=== PATIENT | male | born 1995 | race African-American/Black ===

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

== ENCOUNTER 2017-01-06 15:56 | Emergency (ER) | payer SELFPAY ==
[2017-01-06] MEDS ORDERED: PREDNISONE 20 MG TABLET PO ONE (16:28)
[2017-01-06] MEDS ORDERED: IPRATROPIUM/ALBUTEROL 0.5-2.5 MG/3 ML AMPUL NEB ONE (16:28)
--- NOTE | 2017-01-06 16:32 | ER Document Report ---
HPI - HPI Patient complains to provider of: Cough and chest congestion, asthma flare Onset: Other Onset/Duration: Sudden Quality of pain: Achy Severity: Severe Pain Level: 5 Context: Patient states he has had cold symptoms that started last Thursday. No fever. Nebulizer not helping with cough and asthma. Patient also needs albuterol solution refills. Patient complains of intermittent back pain on and off for the last 1-2 months. This is not related to current illness. Associated Symptoms: Nonproductive cough, Sinus pain/drainage. denies: Fever Exacerbated by: Denies Relieved by: Denies Similar symptoms previously: Yes Recently seen / treated by doctor: No - ROS ROS below otherwise negative: Yes Systems Reviewed and Negative: Yes All other systems reviewed and negative - CONSTITUTIONAL Constitutional: DENIES: Fever - EENT EENT: REPORTS: Sore Throat, Ear Pain, Nasal Drainage-Clear, Congestion - NEURO Neurology: REPORTS: Headache - CARDIOVASCULAR Cardiovascular: DENIES: Chest pain - RESPIRATORY Respiratory: REPORTS: Trouble Breathing, Coughing - GASTROINTESTINAL Gastrointestinal: DENIES: Abdominal Pain - URINARY Urinary: DENIES: Dysuria - MUSCULOSKELETAL Musculoskeletal: REPORTS: Back Pain - DERM Skin Color: Normal Skin Problems: None Past Medical History - General Information source: Patient - Social History Smoking Status: Current Every Day Smoker Cigarette use (# per day): Yes Frequency of alcohol use: None Drug Abuse: None Lives with: Family Family History: Reviewed & Not Pertinent Patient has suicidal ideation: No Patient has homicidal ideation: No Pulmonary Medical History: Reports: Hx Asthma Surgical Hx: Negative - Immunizations Immunizations up to date: Yes Hx Diphtheria, Pertussis, Tetanus Vaccination: Yes Vertical Provider Document - CONSTITUTIONAL Agree With Documented VS: Yes Exam Limitations: No Limitations General Appearance: WD/WN, No Apparent Distress - INFECTION CONTROL TRAVEL OUTSIDE OF THE [place] IN LAST 30 DAYS: No - HEENT HEENT: Atraumatic, Normocephalic Notes: TMs dull bilaterally on exam. Throat with mild erythema, patient does have postnasal drainage. - NECK Neck: Normal Inspection, Supple - RESPIRATORY Respiratory: No Respiratory Distress, Wheezing O2 Sat by Pulse Oximetry: 97 - CARDIOVASCULAR Cardiovascular: Regular Rate, Regular Rhythm - GI/ABDOMEN Gastrointestinal: Abdomen Soft, Abdomen Non-Tender, Normal Bowel Sounds - MUSCULOSKELETAL/EXTREMETIES Musculoskeletal/Extremeties: MAEW - NEURO Level of Consciousness: Awake, Alert, Appropriate - DERM Integumentary: Warm, Dry, No Rash Course - Re-evaluation Re-evalutation: 01/06/17 17:26 Chest x-ray was normal and this was discussed with patient. Minimal expiratory wheeze noted after neb treatment. 01/06/17 18:36 After second neb treatment, no wheezing noted. - Vital Signs Vital signs: Temp Pulse Resp BP Pulse Ox 98.8 F 76 22 127/82 H 97 01/06/17 16:12 01/06/17 16:12 01/06/17 16:12 01/06/17 16:12 01/06/17 16:12 Discharge - Discharge Clinical Impression: URI, acute, Asthma exacerbation Condition: Good Disposition: HOME, SELF-CARE Additional Instructions: Take all meds as prescribed Nebs every 4 hours 2 days, then every 4 hours as needed for cough and/or wheezing Push fluids [id number] cough cold medication for symptom relief Tylenol or Motrin as needed Follow-up with your primary care provider Thursday for recheck Return if worsens and as needed Prescriptions: Albuterol Sulfate [Proair HFA] 1 - 2 puff IH Q4 PRN #1 inhaler PRN Reason: Albuterol Sulfate [Ventolin 0.083% Neb 2.5 mg/3 mL Ampul] 1 vial NEB Q4 #30 vial Azithromycin [Zithromax 250 mg Tablet] 250 mg PO ASDIR PRN #6 tablet PRN Reason: Prednisone [Deltasone 10 mg Tablet] 10 mg PO ASDIR PRN #15 tablet PRN Reason: Forms: Return to School, Release from PE and Sports
--- NOTE | 2017-01-06 16:45 | RADIOLOGY REPORT (SQ) ---
EXAM DESCRIPTION: CHEST PA/LAT COMPLETED DATE/TIME: 01/06/2017 4:38 pm REASON FOR STUDY: cough COMPARISON: 08/15/2014. EXAM PARAMETERS: NUMBER OF VIEWS: two views TECHNIQUE: Digital Frontal and Lateral radiographic views of the chest acquired. RADIATION DOSE: NA LIMITATIONS: none FINDINGS: LUNGS AND PLEURA: No opacities, masses or pneumothorax. No pleural effusion. MEDIASTINUM AND HILAR STRUCTURES: No masses or contour abnormalities. HEART AND VASCULAR STRUCTURES: Heart normal size. No evidence for failure. BONES: No acute findings. HARDWARE: None in the chest. OTHER: No other significant finding. IMPRESSION: NO SIGNIFICANT RADIOGRAPHIC FINDING IN THE CHEST. TECHNICAL DOCUMENTATION: JOB ID: [id number] [employer]- All Rights Reserved
[2017-01-06] MEDS ORDERED: ALBUTEROL SULFATE 0.083% NEB 2.5 MG/3 ML AMPUL NEB ONE (17:23)
[2017-01-06 17:49] LABS: APPEARANCE,URINE CLEAR; BILIRUBIN,URINE NEGATIVE (NEGATIVE); GLUCOSE, URINE NEGATIVE (NEGATIVE); KETONES,URINE NEGATIVE (NEGATIVE); LEUKOCYTE ESTERASE,URINE NEGATIVE (NEGATIVE); NITRITE,URINE NEGATIVE (NEGATIVE); PROTEIN,URINE NEGATIVE (NEGATIVE); URINE SPECIFIC GRAVITY 1.017; UROBILINOGEN,URINE NEGATIVE mg/dL (<2.0)
[2017-01-06 19:31] VITALS: BP 142/75
== END 2017-01-06 19:31 | disposition home or self-care (01) ==
LOC: ER 15:56
DX: J06.9 Acute upper respiratory infection, unspecified (principal); J45.901 Unspecified asthma with (acute) exacerbation; F17.210 Nicotine dependence, cigarettes, uncomplicated
CPT/HCPCS: 94640 ×2; 99284; 81001; 71020; J7512; J7620

== ENCOUNTER 2017-04-16 03:27 | Emergency (ER) | payer SELFPAY ==
[2017-04-16] MEDS ORDERED: NORMAL SALINE 1000 ML 1,000 ML IV ONE (03:37)
[2017-04-16] MEDS ORDERED: DIPHENHYDRAMINE HCL 50 MG/ML VIAL IV ONE (03:38)
--- NOTE | 2017-04-16 03:42 | ER Document Report ---
ED GI/ - General Chief Complaint: Nausea/Vomiting/Diarrhea Stated Complaint: FLU LIKE SYMPTOMS Time Seen by Provider: 04/16/17 03:32 Notes: Patient is a 21-year-old male that comes emergency department by EMS for chief complaint of nausea, vomiting, and diarrhea. He states symptoms started almost 24 hours ago, he has vomited about 10 times, had similar amount of diarrhea, states two times he had a few bright red bloody spots in the diarrhea (although none on the previous episode). He denies fever, he reports some chills. He reports generalized abdominal discomfort. No obvious sick contacts. He states he started to feel bad about 2 hours after [employer]. He denies recent travel, recent antibiotics. He denies any daily medications or surgeries. TRAVEL OUTSIDE OF THE [place] IN LAST 30 DAYS: No - Related Data Allergies/Adverse Reactions: No Known Allergies Allergy (Verified 01/06/17 16:12) Past Medical History - General Information source: Patient - Social History Smoking Status: Current Every Day Smoker Chew tobacco use (# tins/day): No Frequency of alcohol use: Social Drug Abuse: None Lives with: Family Family History: Reviewed & Not Pertinent Patient has suicidal ideation: No Patient has homicidal ideation: No Pulmonary Medical History: Reports: Hx Asthma Renal/ Medical History: Denies: Hx Peritoneal Dialysis Surgical Hx: Negative - Immunizations Immunizations up to date: Yes Hx Diphtheria, Pertussis, Tetanus Vaccination: Yes Review of Systems - Review of Systems Constitutional: No symptoms reported EENT: No symptoms reported Cardiovascular: No symptoms reported Respiratory: No symptoms reported Gastrointestinal: See HPI Genitourinary: No symptoms reported Male Genitourinary: No symptoms reported Musculoskeletal: No symptoms reported Skin: No symptoms reported Hematologic/Lymphatic: No symptoms reported Neurological/Psychological: No symptoms reported Physical Exam - Vital signs Vitals: Temp Pulse Resp BP Pulse Ox 98.7 F 72 18 145/77 H 98 04/16/17 03:33 04/16/17 03:33 04/16/17 03:33 04/16/17 03:33 04/16/17 03:33 Interpretation: Normal - General General appearance: Appears well, Alert In distress: None - HEENT Head: Normocephalic, Atraumatic Eyes: Normal Conjunctiva: Normal Extraocular movements intact: Yes Eyelashes: Normal Pupils: PERRL Mouth/Lips: Normal Mucous membranes: Dry Pharynx: Normal Neck: Normal - Respiratory Respiratory status: No respiratory distress Chest status: Nontender Breath sounds: Normal Chest palpation: Normal - Cardiovascular Rhythm: Regular. No: Tachycardia Heart sounds: Normal auscultation, S1 appreciated, S2 appreciated Murmur: No - Abdominal Inspection: Normal Distension: No distension Bowel sounds: Normal Tenderness: Tender - Minimal generalized tenderness over the abdomen, nonspecific, no guarding, no rebound tenderness, no rigidity Organomegaly: No organomegaly - Back Back: Normal, Nontender. No: Tender - Extremities General upper extremity: Normal inspection, Nontender, Normal strength, Normal temperature General lower extremity: Normal inspection, Nontender, Normal strength, Normal temperature - Neurological Neuro grossly intact: Yes Cognition: Normal Orientation: AAOx4 Danay Coma Scale Eye Opening: Spontaneous [place] Coma Scale Verbal: Oriented Danay Coma Scale Motor: Obeys Commands Danay Coma Scale Total: 15 Speech: Normal Cranial nerves: Normal Cerebellar coordination: Normal Motor strength normal: LUE, RUE, LLE, RLE Sensory: Normal - Psychological Associated symptoms: Normal affect, Normal mood - Skin Skin Temperature: Warm Skin Moisture: Dry Skin Color: Normal Course - Re-evaluation Re-evalutation: Dry mucous membranes but soft abdomen, alert and well-appearing patient. No tachycardia, hypotension, or fever. Chemistry unremarkable. No evidence of significant dehydration from vomiting or diarrhea. Patient initially stated he could give a stool sample but then was unable to provide it. After nausea medication patient ate a popsicle and drink fluids without any difficulty. No additional vomiting. Patient continues to be extremely well-appearing on reevaluation. Very low suspicion of any acute surgical or emergent abnormality. More likely viral. Discussed workup, recommendations, treatment, follow-up, return precautions with patient. Patient states understanding and agreement. - Vital Signs Vital signs: Temp Pulse Resp BP Pulse Ox 98.7 F 72 18 145/77 H 98 04/16/17 03:33 04/16/17 03:33 04/16/17 03:33 04/16/17 03:33 04/16/17 03:33 - Laboratory Result Diagrams: 04/16/17 04:15 Laboratory results interpreted by me: 04/16/17 04:15 Sodium 145.7 H Discharge - Discharge Clinical Impression: Nausea vomiting and diarrhea Condition: Stable Additional Instructions: Your symptoms, examination, and workup suggest this is most likely a viral syndrome. Hydrate, start with bland foods, take Phenergan for nausea, take Pepcid as prescribed. Follow-up with primary care. Return if you worsen including uncontrolled vomiting, severe abdominal pain or distention, or any other concerning symptoms. Prescriptions: Famotidine [Pepcid 20 mg Tablet] 20 mg PO BID #12 tablet Promethazine HCl [Phenergan 25 mg Tablet] 1 - 2 tab PO Q6H PRN #15 tablet PRN Reason:
[2017-04-16 04:42] LABS: ALANINE AMINOTRANSFERASE 39 U/L (10-40); ALBUMIN 4.9 g/dL (3.7-5.6); ALKALINE PHOSPHATASE 79 U/L (65-260); ANION GAP 15 (5-19); ASPARTATE AMINO TRANSFERASE 25 U/L (10-45); BILIRUBIN,DIRECT 0.2 mg/dL (0.0-0.4); BILIRUBIN,TOTAL 0.9 mg/dL (0.2-1.3); BLOOD UREA NITROGEN 15 mg/dL (7-20); CALCIUM 10.1 mg/dL (8.4-10.2); CARBON DIOXIDE 24 mmol/L (22-30); CHLORIDE 107 mmol/L (98-107); GLUCOSE 86 mg/dL (75-110); POTASSIUM 4.1 mmol/L (3.6-5.0); SODIUM 145.7 mmol/L (137-145); TOTAL PROTEIN 7.8 g/dL (6.3-8.2)
[2017-04-16] MEDS ORDERED: KETOROLAC TROMETHAMINE INJ/PF 30 MG/1 ML SDV IV ONE (04:57)
[2017-04-16] MEDS ORDERED: FAMOTIDINE 20 MG TABLET PO ONE (04:57)
[2017-04-16] MEDS ORDERED: ONDANSETRON ODT 4 MG TAB (6 TAB/ER DISP) PO PRN (04:58)
[2017-04-16 05:39] VITALS: BP 130/72
== END 2017-04-16 05:00 | disposition home or self-care (01) ==
LOC: ER 03:27
DX: R11.2 Nausea with vomiting, unspecified (principal); R19.7 Diarrhea, unspecified; K92.1 Melena; R10.817 Generalized abdominal tenderness; F17.200 Nicotine dependence, unspecified, uncomplicated; J45.909 Unspecified asthma, uncomplicated
CPT/HCPCS: 99283; 96361; 96374; 96375; 36415; 80053; J1200; J1885; J7030

== ENCOUNTER 2017-08-08 21:13 | Emergency (ER) | payer SELFPAY ==
[2017-08-08 21:35] VITALS: BP 118/83
== END 2017-08-09 00:23 | disposition left against medical advice (07) ==
LOC: ER 21:13
DX: Z53.21 Procedure and treatment not carried out due to patient leaving prior to being seen by health care provider (principal)

== ENCOUNTER 2017-08-21 23:03 | Emergency (ER) | payer MEDICAID ==
[2017-08-22] MEDS ORDERED: ALBUTEROL SULFATE 0.083% NEB 2.5 MG/3 ML AMPUL NEB ONE (00:35)
[2017-08-22] MEDS ORDERED: HYDROCODONE/ACETAMINOPHEN 5-325 MG TABLET PO ONE (00:37)
--- NOTE | 2017-08-22 00:39 | ER Document Report ---
ED General - General Chief Complaint: Hand Pain Stated Complaint: KNUCKLE PAIN Time Seen by Provider: 08/22/17 00:23 Notes: Patient is a 21-year-old male presents with complaint of punching a wall. He says that he was having an asthma exacerbation got frustrated and punched wall. He says bone graft today and this will trigger it. Has a prescription for an inhaler but has not filled it. Says he still has some coughing and congestion but is feeling little better than it was before. Patient complains mainly of pain in the hand that is mainly over the ulnar aspect of left hand. Small amount of pain in ulnar aspect left wrist. Radial portion of the hand is nontender. No weakness or numbness into the fingers. No other complaints at this time. TRAVEL OUTSIDE OF THE [place] IN LAST 30 DAYS: No - Related Data Allergies/Adverse Reactions: No Known Allergies Allergy (Verified 01/06/17 16:12) Past Medical History - Social History Smoking Status: Never Smoker Frequency of alcohol use: None Drug Abuse: None Family History: Reviewed & Not Pertinent Patient has suicidal ideation: No Patient has homicidal ideation: No Pulmonary Medical History: Reports: Hx Asthma Renal/ Medical History: Denies: Hx Peritoneal Dialysis - Immunizations Immunizations up to date: Yes Hx Diphtheria, Pertussis, Tetanus Vaccination: Yes Review of Systems - Review of Systems Notes: My Normal Review Basic REVIEW OF SYSTEMS: CONSTITUTIONAL : Denies fever, chills, or sweats. Denies recent illness. EENT: nasal congestion CARDIOVASCULAR: Denies chest pain. RESPIRATORY: some cough and wheezing. GASTROINTESTINAL: Denies abdominal pain. Denies nausea, vomiting, or diarrhea. Denies constipation. Last BM: MUSCULOSKELETAL: Pain and swelling to left hand. SKIN: Denies rash or skin lesions. ALL OTHER SYSTEMS REVIEWED AND NEGATIVE. Physical Exam - Vital signs Vitals: Temp Pulse Resp BP Pulse Ox 98.3 F 84 18 122/62 100 08/21/17 23:47 08/21/17 23:47 08/21/17 23:47 08/21/17 23:47 08/21/17 23:47 - Notes Notes: General Appearance: Well nourished, alert, cooperative, no acute distress, moderate obvious discomfort. Audible nasal congestion on exam. Vitals: reviewed, See vital signs table. Eyes: PERRL, EOMI, Conjuctiva clear Mouth: No decreasd moisture Lungs: Mild scattered wheezing, No rales, No rhonci, No accessory muscle use, good air exchange bilaterally. Heart: Normal rate, Regular rythm, No murmur, no rub Extremities: Good distal radial and ulnar pulse on left upper extremity. Obvious swelling to the ulnar aspect of the left hand. Pain to palpation over the distal fifth metacarpal. Patient is able to fully flex and extend all fingers of the hand but has some pain in doing so with the fifth digit. No pain to palpation remainder of the hand. He does have some pain to palpation ulnar aspect of the wrist. Radial aspect of the wrist is nontender. Scaphoid is nontender. Skin: warm, dry, appropriate color, no rash Neuro: speech clear, oriented x 3, normal affect, responds appropriately to questions. Course - Re-evaluation Re-evalutation: 08/22/17 06:06 Patient had some slight wheezing which easily resolved with one breathing treatment. I will give him albuterol inhaler. I encouraged him to start taking [id number] allergy medicine such as Claritin or Digna as he works in lawn maintenance and this will most likely help reduce amount of asthma exacerbations he gets. He does have a trace to the base of the left fifth metacarpal pole. I have placed an ulnar gutter splint and will have him follow-up closely with the orthopedist. Patient encouraged to return to ER if he has any weakness or numbness into his hands. I informed him to loosen the Eddie wrap on the splint if he feels that it is too tight if he has any numbness or tingling to his fingertips. Patient agrees with plan will be discharged home. Dictation of this chart was performed using voice recognition software; therefore, there may be some unintended grammatical errors. - Vital Signs Vital signs: Temp Pulse Resp BP Pulse Ox 98.1 F 81 18 123/66 100 08/22/17 02:15 08/22/17 02:15 08/22/17 02:15 08/22/17 02:15 08/22/17 02:15 Procedures - Immobilization Left Hand Pre-Proc Neuro Vasc Exam: Normal Immobilizer type: Ulnar Performed by: PCT Post-Proc Neuro Vasc Exam: Normal Discharge - Discharge Clinical Impression: Asthma Qualifiers: Asthma severity: unspecified severity Asthma persistence: intermittent Asthma complication type: with acute exacerbation Qualified Code(s): J45.21 - Mild intermittent asthma with (acute) exacerbation Hand fracture, left Qualifiers: Encounter type: initial encounter Fracture type: closed Qualified Code(s): S62.92XA - Unspecified fracture of left wrist and hand, initial encounter for closed fracture Condition: Good Disposition: HOME, SELF-CARE Instructions: Oral Narcotic Medication ([facility]) Additional Instructions: Splitn Precautions A splint has been placed. This will protect the area while healing begins. Your problem does NOT normally require a cast. It MUST, however, be held still! Keep the splint on ALL THE TIME until instructed to remove it by the doctor. As you begin to use the area, be careful. You shouldn't do anything which causes discomfort -- you may disturb the injury even with the splint in place. After the initial period of rest and elevation, if splint does not prevent pain when you move, come back. You may require placement of a different splint , or a cast. If there is unexpected severe pain, or numbness, discoloration, or swelling beyond the splint, you should return at once. If you feel that the splint has broken or become loose, come back. Please take [id number] Claritin or Digna every day. This will help decrease the amount of asthma exacerbations you have. Please use inhaler as 2 puffs every 4 hours as needed for wheezing. Please return to ER immediately if you have difficulty breathing, recurrent wheezing, or feel unwell. Please call Dr. Liu, orthopedic surgeon, to follow-up in regards to your broken hand. This follow-up appointment is very important to make as you may eventually need surgery for hand or he may just need a cast. Either way you need to be evaluated by the orthopedist so that you get the appropriate treatment so that you have a good long-term function of her hand. Referrals: WERO LIU MD [ACTIVE STAFF] - 08/24/17
[2017-08-22] MEDS ORDERED: ALBUTEROL SULFATE HFA (90 MCG/PUFF) 8 GM MDI (1 MDI/ER DISP) IH ONE (01:35)
[2017-08-22] MEDS ORDERED: HYDROCODONE/ACETAMINOPHEN 5-325 MG (6 TAB/ER DISP) PO PRN (01:35)
--- NOTE | 2017-08-22 02:06 | RADIOLOGY REPORT (SQ) ---
EXAM DESCRIPTION: XR HAND 3 OR MORE VIEWS CLINICAL HISTORY: 21 years Male, trauma COMPARISON: None. Findings: Comminuted intra-articular fracture at the base of the left fifth metacarpus. No evidence of healing. IMPRESSION: Fracture of the left fifth metacarpus.
--- NOTE | 2017-08-22 02:07 | RADIOLOGY REPORT (SQ) ---
EXAM DESCRIPTION: XR WRIST 1-2 VIEWS CLINICAL HISTORY: 21 years Male, trauma COMPARISON: None. Findings: Comminuted intra-articular fracture of the left fifth metacarpus with swelling.. Bones, joints, and soft tissues of the left wrist appear otherwise intact. IMPRESSION: Fracture of the left fifth metacarpal base.
[2017-08-22 02:37] VITALS: BP 123/66
== END 2017-08-22 02:17 | disposition home or self-care (01) ==
LOC: ER 23:03
DX: S62.317A Displaced fracture of base of fifth metacarpal bone, left hand, initial encounter for closed fracture (principal); W22.01XA Walked into wall, initial encounter; Y93.89 Activity, other specified; J45.21 Mild intermittent asthma with (acute) exacerbation; R05 Cough; M25.532 Pain in left wrist; R09.81 Nasal congestion
CPT/HCPCS: 99283; 73130; 73100; 29125; J3490

== ENCOUNTER 2020-02-21 00:35 | Emergency (ER) | payer MEDICAID ==
[2020-02-21 00:46] VITALS: BP 129/79
== END 2020-02-21 03:48 | disposition left against medical advice (07) ==
LOC: ER 00:35
DX: Z53.21 Procedure and treatment not carried out due to patient leaving prior to being seen by health care provider (principal)